=== PATIENT | male | born 1995 | race Caucasian/White ===

== ENCOUNTER → 2019-10-23 13:55 | Outpatient (BNVA) | payer BC, SELFPAY | PROVIDERS: Family Provider Nurse Practitioner; Visit Provider Family Medicine | DX: M25.571 Pain in right ankle and joints of right foot (principal) | CPT/HCPCS: 73610 ==

== ENCOUNTER 2019-12-07 03:55 | Inpatient (IN) | payer SELFPAY ==
--- NOTE | 2019-12-07 04:01 | ED_ITS ---
HPI - Psych General: Stated Complaint: SI Time Seen by Provider: 12/07/19 03:59 Source: patient and EMS Mode of arrival: EMS Limitations: no limitations History of Present Illness: HPI Narrative: 24-year-old male who presents here after a suicide attempt. Patient transferred here from [facility] and had labs drawn there that were all negative. Patient did ingest clindamycin and a handful almost 18 hours ago. Patient is accepted by Dr. Clark in the psychiatric unit. complaint: suicidal ideation Onset (ago): day(s) Associated symptoms: Reports depression and suicidal ideation Review of Systems Const: Denies: fever(s), chills, body aches or change in appetite Eyes: Denies: blurry vision or eye discomfort ENMT: Denies: throat pain or dental pain Card: Denies: chest pain Resp: Denies: dyspnea GI: Denies: abdominal pain, nausea, vomiting or diarrhea : Denies: dysuria Musc: Denies: neck pain or back pain Skin/Breast: Denies: rash Neuro: Denies: headache(s) Psych: Reports: depression and suicidal ideation Triston/Lymph: Denies: easy bruising All/Imm: Denies: urticaria PFSH ED PFSH: Medical History Inguinal hernia Surgical History H/O myringotomy Family History Other Cancer Diabetes Social History Smoking and tobacco status: never smoked Alcohol intake: never Current gender identity: Male Physical Exam Const: COMMON NORMALS: no acute distress, patient oriented x3 and healthy appearing HENMT: COMMON NORMALS: normocephalic and atraumatic HEAD & SCALP: normocephalic and atraumatic Eye: COMMON NORMALS: Equal, round and reactive pupils present and EOMs intact bilaterally PUPIL: Yes Equal, round and reactive pupils present Neck/C-Spine: COMMON NORMALS: full ROM and supple Chest: COMMONS NORMALS: normal inspection of the chest and normal palpation of entire chest wall Resp: COMMON NORMALS: normal respiratory effort, No retractions, No use of accessory muscles and clear to auscultation bilaterally AUSCULTATION: clear to auscultation bilaterally Cardio: COMMON NORMALS: regular rate, regular rhythm and No murmurs present (Cardio) RATE: regular rate RHYTHM: regular rhythm GI: COMMON NORMALS: Normal to inspection, nondistended, normoactive bowel sounds present, Soft to palpation, non-tender and no masses PALPATION: Yes Soft to palpation Extremity: COMMON NORMALS: normal to inspection and full ROM Neuro: COMMON NORMALS: patient oriented x3, moves all extremities and no focal motor deficits Psych: COMMON NORMALS: cooperative THOUGHT CONTENT: Yes Suicidality present Skin: COMMON NORMALS: no rashes or lesions noted and no wounds GENERAL SKIN EXAM: no rashes or lesions noted MDM - Psych MDM Narrative: Medical decision making narrative: Patient presents here with suicidal ideation along with attempt to kill himself with overdose 12 hours ago. Patient was medically cleared and lab work is normal at previous facility. Patient was accepted by Dr. Clark and I spoke to Dr. Clark and will admit. Discharge Plan Discharge Patient Disposition: Admitted As Inpatient Clinical Impression: Suicidal ideation Drug overdose Qualifiers: Encounter type: initial encounter Condition: Stable Referrals: Chilango Beltran SK[employer] LINER-C [Nurse Practitioner] - Coding Level of Care Code ED [employer] for [place] Hernandez
[2019-12-07 04:04] VITALS: BP 121/77; PULSE 99; RESP 16; TEMP 36.8; O2SAT 95
[2019-12-07 06:08] VITALS: BP 132/80; PULSE 112; RESP 18; TEMP 36.9; O2SAT 97
[2019-12-07 14:00] VITALS: BP 109/75; PULSE 96; RESP 18; TEMP 36.6; O2SAT 94
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
[2019-12-07] MEDS: nicotine 2 mg Gum BUCCAL (19:47)
[2019-12-07 20:25] VITALS: BP 114/71; PULSE 95; RESP 20; TEMP 36.6; O2SAT 96
[2019-12-07] MEDS: hyDROXYzine 25 mg Capsule 50 MG PO (21:04)
[2019-12-07] MEDS: trazodone 50 mg Tablet PO (21:05)
--- NOTE | 2019-12-08 04:13 | PC.NURSE ---
pt started this shift with pacing up and down hallway, but after PRN trazodone and vistaril at HS, pt went on to bed. no behavior issues noted.
[2019-12-08 06:00] VITALS: BP 111/69; PULSE 79; RESP 18; TEMP 36.8; O2SAT 96
--- NOTE | 2019-12-08 10:29 | PM.NPN ---
Subjective NPU Subjective: Interval history: The patient presents today reporting that his stomach feels a little better, and he was agreeable to restarting his medication. We restarted the Keppra at 500 mg twice a day because there was some evidence that he had not been taking it as regularly as he should have. He is on his last fill date, but he agreed to start it at a lesser dose. He denies a significant history of anti-depressant treatment, denying significant exposure to Prozac or other SSRI?s, so we discussed the risks, benefits, and alternatives of starting Prozac and he understood and agreed to proceed as is documented in this note. He reports he is still depressed, but he is eating a little better, still struggling with sleep. Mental Status Exam MSE Comments: This is a well-nourished, well-developed, white male, very slender, with adequate dress, grooming, and limited eye contact. No abnormal movements except for psychomotor retardation. Cooperative with exam in mild to moderate distress. Speech was decreased rate and volume. Mood described as depressed; affect congruent. Thought process, organized. Thought content: patient did endorse suicidal ideation, but not homicidal ideation. Attention and concentration were intact, and memory appeared reliable, but none were formally tested. He is alert and oriented times three. Insight and judgment are limited. Impulse control is limited. Vitals/I&O/Wt Last Vital Signs Temp 97.6 F 12/08/19 14:00 Pulse 97 12/08/19 14:00 Resp 18 12/08/19 14:00 BP 127/74 12/08/19 14:00 Pulse Ox 97 12/08/19 14:00 Weight last 48 hrs Weight 67.132 kg A&P Additional A&P Information (1) Suicidal ideation: (2) Drug overdose: (3) Bipolar 1 disorder with moderate aida: (4) Seizure disorder: (5) Inguinal hernia: This is a 24 year old, white male, with a long history of addiction and depression, question of bipolar disorder from previous diagnosis and reportedly seizure disorder, who presents after another significant loss he is perceiving in his life with his ex and decreased access to his daughter, who presents open to restarting the medication and exploring some treatment options. 1. Continue current medication.Except: restart Keppra, lamictal and start Prozac 20 mg po qam. 2. Encourage individual, group, and milieu therapy. 3. Continue q 15-minute checks for safety. 4. Will encourage discharge to a sober living facility at the highest level of care, to which he is willing to commit. Involuntary Hold Information 96 Hour Hold: 96 Hour Involuntary Admission: No Attestations NPU Medical Necessity Statement*: Inpatient hospitalization is medically necessary, and the clinically appropriate intervention at this time. We will monitor medications and titrate to affect. He will be in the hospital for over two midnights. Likely length of stay 3-4 days. 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
[2019-12-08] MEDS: levETIRAcetam 500 mg Tablet PO ×2 (11:29→17:43)
[2019-12-08] MEDS: lamoTRIgine 100 mg Tablet 150 MG PO (11:29)
[2019-12-08] MEDS: nicotine 2 mg Gum BUCCAL ×3 (12:04→21:10)
[2019-12-08 14:00] VITALS: BP 127/74; PULSE 97; RESP 18; TEMP 36.4; O2SAT 97
[2019-12-08] MEDS: fluoxetine 20 mg Capsule PO (14:15)
[2019-12-08 20:22] VITALS: BP 109/68; PULSE 75; RESP 16; TEMP 36.4; O2SAT 97
[2019-12-08] MEDS: trazodone 50 mg Tablet PO (20:32)
[2019-12-08] MEDS: hyDROXYzine 25 mg Capsule 50 MG PO (20:32)
--- NOTE | 2019-12-08 21:32 | PC.NURSE ---
pt given PRN nicorette gum, trazodone and vistaril per pt request.
[2019-12-08 22:00] VITALS: BP 109/68; PULSE 75; RESP 16; TEMP 36.4; O2SAT 97
[2019-12-09 06:00] VITALS: BP 110/68; PULSE 63; RESP 14; TEMP 36.2; O2SAT 98
[2019-12-09] MEDS: lamoTRIgine 100 mg Tablet 150 MG PO (09:10)
[2019-12-09] MEDS: levETIRAcetam 500 mg Tablet PO ×2 (09:11→18:55)
[2019-12-09] MEDS: fluoxetine 20 mg Capsule PO (09:12)
[2019-12-09] MEDS: nicotine 2 mg Gum BUCCAL ×3 (13:07→20:03)
[2019-12-09 14:00] VITALS: BP 103/64; PULSE 76; RESP 18; TEMP 36.9
--- NOTE | 2019-12-09 14:12 | P.PN_ITS ---
Subjective NPU Subjective: Interval history: The patient presents today reporting that he is doing better with the Prozac. He started asking questions about what discharge would look like. One of the concerns that we discussed was that, when he initially came in, he was very much open to the idea of rehab and getting a firmer control of his addiction, but now his focus was on missing his child. Now he is reporting, unlike when he first came in, that he could go over there and see his child. His report of why he needed to come in was because he was despondent that he could not see them, and he couldn?t really explain to me the discrepancies in the stories. Although we agreed the most critical part, in this hospital visit, outside of the medication adjustments, is him having a plan for how he is going to face his addiction. However, you can see he is kind of getting antsy about discharge, which is concerning given how precarious his recovery is, at this point. Mental Status Exam MSE Comments: This is a well-nourished, well-developed, white male, very slender, with adequate dress, grooming, and eye contact. No abnormal movements except for psychomotor retardation. Cooperative with exam in no acute distress. Speech was more normal rate and volume. Mood described as better; affect congruent. Thought process, organized. Thought content: patient denied suicidal or homicidal ideation. Attention and concentration were intact, and memory appeared reliable, but none were formally tested. He is alert and oriented times three. Insight and judgment are limited, but improving. Impulse control is limited. Vitals/I&O/Wt Last Vital Signs Temp 97.2 F L 12/09/19 06:00 Pulse 63 12/09/19 06:00 Resp 14 12/09/19 06:00 BP 110/68 12/09/19 06:00 Pulse Ox 98 12/09/19 06:00 Weight last 48 hrs Weight 63.163 kg A&P Additional A&P Information (1) Suicidal ideation: (2) Drug overdose: (3) Bipolar 1 disorder with moderate aida: (4) Seizure disorder: (5) Inguinal hernia: This is a 24 year old, white male, with a long history of addiction and depression, question of bipolar disorder from previous diagnosis and reportedly seizure disorder, who presents after another significant loss he is perceiving in his life with his ex and decreased access to his daughter, who presents tolerating the medication and exploring some treatment options. 1. Continue current medication. 2. Encourage individual, group, and milieu therapy. 3. Continue q 15-minute checks for safety. 4. Will encourage discharge to a sober living facility at the highest level of care, to which he is willing to commit. Involuntary Hold Information 96 Hour Hold: 96 Hour Involuntary Admission: No Attestations NPU Medical Necessity Statement*: Inpatient hospitalization is medically necessary, and the clinically appropriate intervention at this time. We will monitor medications and titrate to affect. He will be in the hospital for over two midnights. Likely length of stay 2-3 days. 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
[2019-12-09] MEDS: OLANZapine 5 mg ODT PO (21:14)
[2019-12-09] MEDS: hyDROXYzine 25 mg Capsule 50 MG PO (21:14)
[2019-12-09 22:00] VITALS: BP 107/63; PULSE 92; RESP 18; TEMP 36.6; O2SAT 97
--- NOTE | 2019-12-10 00:54 | PC.NURSE ---
pt given PRN meds vistaril and zyprexa per request at HS.
[2019-12-10 06:00] VITALS: BP 102/62; PULSE 55; RESP 16; TEMP 36.4; O2SAT 98
[2019-12-10] MEDS: fluoxetine 20 mg Capsule PO (09:28)
[2019-12-10] MEDS: levETIRAcetam 500 mg Tablet PO ×2 (09:28→17:30)
[2019-12-10] MEDS: lamoTRIgine 100 mg Tablet 150 MG PO (09:29)
[2019-12-10 14:00] VITALS: BP 151/84; PULSE 98; RESP 18; TEMP 37.1
--- NOTE | 2019-12-10 14:04 | P.PN_ITS ---
Subjective NPU Subjective: Interval history: Daniel presents today talking about going home and seeing his daughter. We had a fairly positive conversation where we talked about what was causing the challenges in his life, right now, and that clearly one of them is addiction, and that if he leaves here without having a clear follow up or addiction services, that would be a great loss and likely put him at risk to be back here in a short time with the same challenges. He agreed that would probably be the case. So, we discussed the risks, benefits, and alternatives of continuing the current medication and getting arrangements for a possible discharge tomorrow morning, and he understood and agreed to proceed as is documented in this note. He reports that he is eating better and sleeping fine. Mental Status Exam MSE Comments: This is a well-nourished, well-developed, white male, very slender, with adequate dress, grooming, and eye contact. No abnormal movements except for improving psychomotor retardation. Cooperative with exam in no acute distress. Speech was more normal rate and volume. Mood described as better; affect congruent. Thought process, organized. Thought content: patient denied suicidal or homicidal ideation. There were no delusions reported noted, he denied any auditory or visual hallucinations. Attention and concentration were intact, and memory appeared reliable, but none were formally tested. He is alert and oriented times three. Insight and judgment are limited, but improving. Impulse control is limited, but improving. Vitals/I&O/Wt Last Vital Signs Temp 97.6 F 12/10/19 06:00 Pulse 55 L 12/10/19 06:00 Resp 16 12/10/19 06:00 BP 102/62 12/10/19 06:00 Pulse Ox 98 12/10/19 06:00 Weight last 48 hrs Weight 63.163 kg A&P Additional A&P Information (1) Suicidal ideation: (2) Drug overdose: (3) Bipolar 1 disorder with moderate aida: (4) Seizure disorder: (5) Inguinal hernia: This is a 24 year old, white male, with a long history of addiction and depression, question of bipolar disorder from previous diagnosis and reportedly seizure disorder, who presents after another significant loss he is perceiving in his life with his ex and decreased access to his daughter, who presents tolerating the medication and exploring some treatment options. 1. Continue current medication. 2. Encourage individual, group, and milieu therapy. 3. Continue q 15-minute checks for safety. 4. Will encourage discharge to a sober living facility at the highest level of care, to which he is willing to commit. Involuntary Hold Information 96 Hour Hold: 96 Hour Involuntary Admission: No Attestations NPU Medical Necessity Statement*: Inpatient hospitalization is medically nece ssary, and the clinically appropriate intervention at this time. We will monitor medications and titrate to affect. Likely length of stay 1-2 days. Encouraging consideration of rehabilitation at some level. 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
[2019-12-10] MEDS: nicotine 2 mg Gum BUCCAL ×2 (14:26→17:46)
[2019-12-10] MEDS: hyDROXYzine 25 mg Capsule 50 MG PO (20:51)
[2019-12-10 22:00] VITALS: BP 93/53; PULSE 76; RESP 17; TEMP 37.1; O2SAT 99
--- NOTE | 2019-12-10 22:48 | PC.NURSE ---
Visteril given for sleep and shoulder discomfort.
[2019-12-11 06:00] VITALS: BP 109/52; PULSE 54; RESP 16; TEMP 36.7; O2SAT 98
[2019-12-11] MEDS: nicotine 2 mg Gum BUCCAL ×2 (06:58→11:11)
[2019-12-11] MEDS: levETIRAcetam 500 mg Tablet PO (08:23)
[2019-12-11] MEDS: fluoxetine 20 mg Capsule PO (08:23)
[2019-12-11] MEDS: lamoTRIgine 100 mg Tablet 150 MG PO (08:23)
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
[2019-12-11 12:09] VITALS: BP 109/52; PULSE 54; RESP 16; TEMP 36.7; O2SAT 98
== END 2019-12-11 12:29 | disposition home or self-care (01) | DRG 918 ==
LOC: ER 04:18 → NP 04:33
PROVIDERS: Admitting Provider Psychiatry & Neurology Psychiatry; Visit Provider Psychiatry & Neurology Psychiatry
DX: T36.8X2A Poisoning by other systemic antibiotics, intentional self-harm, initial encounter (principal); Y92.009 Unspecified place in unspecified non-institutional (private) residence as the place of occurrence of the external cause; K40.90 Unilateral inguinal hernia, without obstruction or gangrene, not specified as recurrent; F31.9 Bipolar disorder, unspecified; G40.909 Epilepsy, unspecified, not intractable, without status epilepticus; Z11.59 Encounter for screening for other viral diseases; F15.90 Other stimulant use, unspecified, uncomplicated; F90.9 Attention-deficit hyperactivity disorder, unspecified type
CPT/HCPCS: 12345; 99281

== ENCOUNTER 2020-01-20 20:41 | Emergency (ER) | payer SELFPAY ==
[2020-01-20 20:49] VITALS: BP 126/90; PULSE 140; RESP 28; TEMP 36.7; O2SAT 98; BMI 20.3
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
[2020-01-20] MEDS: lidocaine 1% INJ 20 mL 10 ML INTRADERMA (21:30)
[2020-01-20] MEDS: ondansetron 2 mg/ML SDV 2 mL 4 MG IVP (21:35)
[2020-01-20 21:36] VITALS: RESP 24; O2SAT 99
[2020-01-20] MEDS: morphine 4 mg/mL SDV 1 mL 8 MG IVP (21:36)
[2020-01-20] MEDS: ceFAZolin 1,000 MG in sodium chloride 0.9% (plus) 50 ML 100 MG IV (22:06)
[2020-01-20 22:10] VITALS: BP 129/71; PULSE 122; RESP 18; O2SAT 99
--- NOTE | 2020-01-20 23:01 | PC.NURSE ---
PATIENT UPDATED PER DR. AMAYA, [facility], CONTACTED ANA AWAITING TO HEAR BACK AND THAT HE IS NPO AND WE WILL ADMIN IV FLUIDS. PATIENT EXPRESSES UNDERSTANDING AND AGREES TO POC
[2020-01-20] MEDS: sodium chloride 0.9% 1,000 ML 999 ML IV (23:13)
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
[2020-01-21 02:11] VITALS: RESP 16
[2020-01-21] MEDS: morphine 4 mg/mL SDV 1 mL IVP (02:11)
[2020-01-21] MEDS: oxyCODONE-APAP 5-325 mg Tablet 1 TAB PO (02:11)
[2020-01-21 02:14] VITALS: BP 125/80; RESP 16
== END 2020-01-21 02:15 | disposition short-term general hospital (02) ==
PROVIDERS: Emergency Provider Family Medicine
DX: S68.629A Partial traumatic transphalangeal amputation of unspecified finger, initial encounter (principal); W31.89XA Contact with other specified machinery, initial encounter
CPT/HCPCS: 12345; 73130; 96365; 96375; 96376; 99283; 99285; J0690; J2270; J2405; J7030

== ENCOUNTER → 2020-02-05 11:52 | Outpatient (BNVA) | payer OTHER, SELFPAY | PROVIDERS: Family Provider Nurse Practitioner; Referring Provider Family Medicine; Visit Provider Specialist | DX: R56.9 Unspecified convulsions (principal); F31.12 Bipolar disorder, current episode manic without psychotic features, moderate; F17.210 Nicotine dependence, cigarettes, uncomplicated | CPT/HCPCS: 99204 ==

== ENCOUNTER → 2020-02-22 08:05 | Outpatient (BNVA) | payer SELFPAY | PROVIDERS: Family Provider Nurse Practitioner; Visit Provider Specialist | DX: R56.9 Unspecified convulsions (principal) | CPT/HCPCS: 95816 ==

== ENCOUNTER → 2022-05-29 12:51 | Outpatient (BNVA) | payer SELFPAY | PROVIDERS: Family Provider Nurse Practitioner; Visit Provider Nurse Practitioner Family | DX: F31.12 Bipolar disorder, current episode manic without psychotic features, moderate (principal); G40.909 Epilepsy, unspecified, not intractable, without status epilepticus | CPT/HCPCS: 80053 ==

== ENCOUNTER 2022-11-11 22:18 | Emergency (ER) | payer SELFPAY ==
[2022-11-11 22:21] VITALS: BP 112/71; PULSE 78; RESP 15; TEMP 36.8; O2SAT 98
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
[2022-11-11 22:51] VITALS: BP 126/83
[2022-11-11] MEDS: tetanus-dipt-pertussis 0.5 mL SDV IM (22:52)
[2022-11-11 22:53] VITALS: RESP 16; O2SAT 98
[2022-11-11] MEDS: morphine 4 mg/mL SDV 1 mL IM (22:53)
[2022-11-11 23:30] VITALS: BP 132/74; PULSE 76; O2SAT 98
[2022-11-12] VITALS: BP 130/75; PULSE 81; RESP 18; O2SAT 100
== END 2022-11-12 00:03 | disposition home or self-care (01) ==
PROVIDERS: Emergency Provider Emergency Medicine
DX: S06.9X9A Unspecified intracranial injury with loss of consciousness of unspecified duration, initial encounter (principal); G40.909 Epilepsy, unspecified, not intractable, without status epilepticus; Y00.XXXA Assault by blunt object, initial encounter; Y93.9 Activity, unspecified; Y92.9 Unspecified place or not applicable
CPT/HCPCS: 70450; 73562; 90471; 90715; 96372; 99284; E0114; J2270

== ENCOUNTER 2022-11-28 19:38 | Emergency (ER) | payer SELFPAY ==
[2022-11-28 19:55] VITALS: BP 94/61; PULSE 77; RESP 16; TEMP 36.7; O2SAT 100; BMI 20.3
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
[2022-11-28 22:48] VITALS: BP 124/84; PULSE 78; O2SAT 99
[2022-11-28 23:19] VITALS: BP 117/80; PULSE 76; O2SAT 100
== END 2022-11-28 23:20 | disposition home or self-care (01) ==
PROVIDERS: Emergency Provider Family Medicine; PCP Nurse Practitioner Family
DX: R07.89 Other chest pain (principal); R04.2 Hemoptysis; F17.220 Nicotine dependence, chewing tobacco, uncomplicated
CPT/HCPCS: 71250; 99284

== ENCOUNTER → 2023-03-05 13:01 | Outpatient (BNVA) | payer SELFPAY | PROVIDERS: PCP Nurse Practitioner Family; Visit Provider Nurse Practitioner Family | DX: G40.909 Epilepsy, unspecified, not intractable, without status epilepticus (principal); R56.9 Unspecified convulsions; F31.12 Bipolar disorder, current episode manic without psychotic features, moderate | CPT/HCPCS: 80053; 84443; 85025 ==

== ENCOUNTER 2024-04-06 01:46 | Emergency (ER) | payer SELFPAY ==
[2024-04-06 01:48] VITALS: BP 151/101; PULSE 75; RESP 18; TEMP 36.4; O2SAT 100; BMI 22.4
[2024-04-06 02:03] VITALS: PULSE 78; RESP 20; O2SAT 100
--- NOTE | 2024-04-06 02:05 | ED_ITS ---
HPI - Dental/Oral General: Chief complaint: Dental/Oral Stated complaint: severe dental pain Time Seen by Provider: 04/06/24 01:46 History of Present Illness: Patient presents to the ER with complaints of right-sided dental pain upper and lower. Is unsure how long it has been going on but is probably been about a month. Patient is not seen a dentist nor does he have a dentist appointment coming up. Patient has extremely poor dentition with multiple dental caries throughout. Related Data Previous Rx's Medication Instructions Recorded oxycodone 5 mg tablet 5 mg PO Q4H PRN pain #10 tabs 11/11/22 tramadol 50 mg tablet 50 mg PO QID PRN pain #20 tabs 11/28/22 lamotrigine 100 mg tablet 100 mg PO DAILY 30 days #30 tabs 03/05/23 levetiracetam 500 mg tablet 500 mg PO BID 30 days #60 tabs 03/05/23 (Keppra) trazodone 50 mg tablet See Rx Instructions PO .qhs #60 03/05/23 tabs amoxicillin 500 mg capsule 500 mg PO Q8H #30 caps 04/06/24 meloxicam 7.5 mg tablet 7.5 mg PO .Twice daily #14 tabs 04/06/24 Allergies Allergy/AdvReac Type Severity Reaction Status Date / Time aspirin Allergy ALGY-Swell Verified 03/05/23 11:34 Lip/Tongue/Throat insect venom Allergy SWELLIN Verified 03/05/23 11:34 Review of Systems General: Reports: 10 or more systems reviewed and unremarkable except in HPI and below PFSH ED PFSH: Medical History (Updated 04/06/24 @ 02:06 by Wade Adames DO) Inguinal hernia Surgical History H/O myringotomy Family History Other Cancer Diabetes Social History Smoking and tobacco/nicotine status: current every day tobacco/nicotine user cigarettes and smokeless tobacco Substance/Drug Use: never Physical Exam Const: COMMON NORMALS: no acute distress, average body habitus, patient orient ed x3, no limitations, healthy appearing, alert and well nourished HENMT: COMMON NORMALS: normocephalic, atraumatic, hearing grossly normal bilaterally, external ears normal, Normal external nose present and moist oral mucous membranes; dentition not normal (Multiple dental caries and necrotic tissue throughout.) HEAD & SCALP: normocephalic and atraumatic NOSE: Normal external nose present EXTERNAL EAR: Yes external ears normal Neck/C-Spine: COMMON NORMALS: full ROM, no lymphadenopathy, supple, no meningeal signs, no JVD and Thyroid normal THYROID: Thyroid normal Chest: COMMONS NORMALS: normal inspection of the chest and normal palpation of entire chest wall Cardio: COMMON NORMALS: no JVD Neuro: COMMON NORMALS: patient oriented x3 SENSORIUM/ORIENTATION: Yes alert MENINGEAL SIGNS: Yes no meningeal signs Course Vital Signs: Vital signs: Vital Signs Temperature 97.5 F L 04/06/24 01:48 Pulse Rate 78 04/06/24 02:03 Respiratory Rate 20 H 04/06/24 02:03 Blood Pressure 151/101 04/06/24 01:48 Pulse Oximetry 100 04/06/24 02:03 Oxygen Delivery Me thod Room Air 04/06/24 02:03 MDM - Dental/Oral Medical Decision Making Patient be given a shot of Toradol 60 mg IM amoxicillin 500 mg p.o. and then discharged on meloxicam and Amoxil. Medical Records I reviewed the patient's medical records. No radiology studies performed this visit Discharge Plan Discharge Patient Disposition: Home Clinical Impression: Dental caries Condition: Stable Prescriptions: New amoxicillin 500 mg capsule 500 mg PO Q8H Qty: 30 0RF meloxicam 7.5 mg tablet 7.5 mg PO .Twice daily Qty: 14 0RF No Action levetiracetam [Keppra] 500 mg tablet 500 mg PO BID 30 Days Qty: 60 2RF lamotrigine 100 mg tablet 100 mg PO DAILY 30 Days Qty: 30 2RF trazodone 50 mg tablet See Rx Instructions PO .qhs Qty: 60 0RF Rx Instructions: 1-2 tablets orally QHS; start with 1 at bedtime; increase to 2 qhs if not adequate response oxycodone 5 mg tablet 5 mg PO Q4H PRN (Reason: pain) Qty: 10 0RF tramadol 50 mg tablet 50 mg PO QID PRN (Reason: pain) Qty: 20 0RF Discharge Orders: Discharge ED (Routine); Ordered 04/06/24 Ordered By: Wade Adames Referrals: Dorota Lo NP [Primary Care Provider] - 1 week Patient Instructions: Dental Caries (Cavities) Activity Restrictions/Additional Instructions: Please take your antibiotics and pain medicine as directed. Please follow-up with your dentist for further definitive treatment. 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
[2024-04-06] MEDS: ketorolac 60 mg/2 mL INJ IM (02:13)
[2024-04-06] MEDS: amoxicillin 500 mg Capsule PO (02:13)
[2024-04-06 02:28] VITALS: BP 143/82; PULSE 86; RESP 18; O2SAT 99
== END 2024-04-06 02:33 | disposition home or self-care (01) ==
PROVIDERS: Emergency Provider Emergency Medicine; PCP Nurse Practitioner Family
DX: K02.9 Dental caries, unspecified (principal); F17.210 Nicotine dependence, cigarettes, uncomplicated
CPT/HCPCS: 96372; 99284; J1885